=== PATIENT | male | born 2000 | race Caucasian/White ===

== ENCOUNTER 2024-06-02 15:41 | Emergency (ER) | payer OTHER ==
[~2024-06-02] VITALS: Ht 172.7 cm; Wt 69.8 kg
[2024-06-02] MEDS: ONDANSETRON 4MG ORAL DISINTEGRATING TAB PO ONE (18:50)
[2024-06-02] MEDS: ACETAMINOPHEN 500 MG TAB PO ONE (18:50)
[2024-06-02 19:44] VITALS: BP 132/86; TEMP 98; O2SAT 99
[2024-06-02] MEDS ORDERED: IBUP-1022 PO (19:47)
[2024-06-02] MEDS ORDERED: ONDA-282 PO (19:47)
== END 2024-06-02 19:51 | disposition home or self-care (01) ==
LOC: M ED 15:41
DX: S06.0X0A Concussion without loss of consciousness, initial encounter (principal); W22.8XXA Striking against or struck by other objects, initial encounter; F10.10 Alcohol abuse, uncomplicated; Y92.9 Unspecified place or not applicable; Y93.89 Activity, other specified; Y99.1 Military activity; Z79.83 Long term (current) use of bisphosphonates; Z79.1 Long term (current) use of non-steroidal anti-inflammatories (NSAID)

== ENCOUNTER 2025-09-26 10:46 | Day surgery (SDC) | payer OTHER ==
[~2025-09-26] VITALS: Ht 172.7 cm; Wt 76.5 kg
[~2025-09-26 10:46] MED LIST: IBUP600T42 PO; KETOROLAC 30 MG/ML 1 ML VIAL As Ordered ONE; LIDOCAINE 2% 100 MG/5 ML SDV (FOR ANES.) As Ordered ONE; ONDA-282 PO; ONDANSETRON 4MG/2ML VIAL As Ordered ONE; dexAMETHasone 4 MG/ML 1 ML VIAL As Ordered ONE
[2025-09-26] MEDS ORDERED: MIDAZOLAM INJ 2 MG/2 ML VIAL As Ordered ONE (11:32)
[2025-09-26] MEDS ORDERED: ACETAMINOPHEN 1000MG/100ML IV BAG As Ordered ONE (12:19)
[2025-09-26] MEDS: LIDOCAINE 1% SDV 30 ML VIAL As Ordered ONE (12:31)
[2025-09-26] MEDS: HYDROMORPHONE HCL 0.5 MG/0.5 ML SYRINGE IV PRN (14:37)
[2025-09-26] MEDS: ONDANSETRON 4MG/2ML VIAL IV PRN (14:37)
[2025-09-26 15:00] VITALS: BP 134/87; TEMP 98.6; O2SAT 96
== END 2025-09-26 15:33 | disposition home or self-care (01) ==
LOC: M SDC 10:46
PROVIDERS: ATTEND Podiatrist Foot & Ankle Surgery
DX: M20.11 Hallux valgus (acquired), right foot (principal); M21.611 Bunion of right foot; M72.2 Plantar fascial fibromatosis
CPT/HCPCS: 28297; 28310; 76000; 88300; C1713; J0131; J0665; J0688; J1100; J1171; J1885; J2250; J2405; J3010